=== PATIENT | male | born 2000 | race Caucasian/White ===

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

== ENCOUNTER 2021-01-23 02:44 | Outpatient (CLI) | payer OTHER, SELFPAY ==
[2021-01-23 09:04] LABS: Kit/Specimen SENT
[2021-01-24 08:28] LABS: IgE 575 IU/mL (<158)
[2021-01-24 09:10] LABS: IgA 298 mg/dL (85-499); IgG 1211 mg/dL (610-1,616); IgM 181 mg/dL (35-242)
[2021-01-28 12:10] LABS: 25-Hydroxy D Total 55 ng/mL; 25-Hydroxy D2 <4.0 ng/mL; 25-Hydroxy D3 55 ng/mL
== END 2021-01-23 02:45 | disposition home or self-care (01) ==
PROVIDERS: PCP Family Medicine; Visit Provider Naturopath
DX: E55.9 Vitamin D deficiency, unspecified (principal); Z91.018 Allergy to other foods
CPT/HCPCS: 36415; 82306; 82784; 82785

== ENCOUNTER 2021-01-29 09:50 | Outpatient (CLI) | payer OTHER, SELFPAY ==
--- OUTSIDE RECORDS SUMMARY | 2021-01-29 09:52 | XMS_ITS ---
:2001 External Reference #:[id number] Author Care Team Providers Name Role Phone Andie Primary Care Provider Unavailable Allergies Code Code System Name Reaction Severity Status Onset 812170 RxNorm [place] ? ? Active 03/04/2009 Birch ? ? Active 03/04/2009 433107 RxNorm Cinnamon ? ? Active 03/04/2009 Grass Pollen Itching Moderate Active 009 [place] ? ? Active 03/04/2009 Medications Name Status Start Date Stop Date ? ? betamethasone, augmented 0.05 % topical Active ? Not available ointment clindamycin 1 % lotion Active ? Not avail able Clindamycin Phosphate(Topical) Active ? N ot available Problems Name Status Onset Date Source ? Vitamin D Deficiency Active 12/05/2020 ? Anxiety Active 12/05/2020 ? Hidradenitis Suppurativa Active 12/05/2020 ? Tachycardia Active 12/05/2020 ? Dietary Management Surveillance Active 12/05/2020 ? Euthyroid with Thyroid Antibodies Active 12/26/2020 ? Procedures Date Name Performed by ? 10/20/2019 Other Information not avai lable Notes: cyst removal under right jawli ne 01/13/2021 Electrocardiogram [facility] [address] [place] [address] (Work Place) Results Lab Results None recorded. Past Encounters 01/08/2021 Tachycardia; Hidradenitis Suppurativa; D ietary Management Surveillance Nereyda Chaves, ND: [address] [place] [address], Ph. [phone] 12/25/2020 Hidradenitis Suppurativa; Euthyroid with Thyroid Antibodies; Allergy to Food; Vitamin D Deficiency; Dietary Management Surveillance Nereyda Chaves, ND: [address] [place] [address], Ph. [phone] 12/04/2020 Vitamin D Deficiency; Anxiety; Tachycard ia; Hidradenitis Suppurativa; Dietary Management Surveillance Nereyda Chaves, ND: [address] , [place] [address], Ph. [phone] Social History Tobacco Smoking Status Never Smoker Vaccine List Vaccine Type HPV, unspecified formulation 11/08/2014 influenza, seasonal, injectable 09/27/2020 Plan of Care Patient Instructions 1. Continue to add a food every few days- if loose stools occur up to 3 days after food introduce disocntinue 1. d-mulsion 5 drops/day retest in 2 months A-mulsion - 1 drop/day - as prevention- 5 drops/day if see more lesions or immune system is down- for 7-10 days no longer- zinc picolinate plus 1/day- - Magnesium citrate 2 caps at night Complete multi 2 cap 2xday Buffered c caps 1 cap 2xday active b12/folate 2 tabs/ [employer] igg and iga, maybe ige panels- i added another lab through your insurance for totals fo these Immunoglubins- and Gi 360- can wait stools are improvin g- on sporebiotics start slowly on above supplement plan- i ntroduce one pill every 3-4 days- call if questions 1. DIET/STOOL/symptom log bring to next visit- i will email additional copies to print- please use these to record for me - 2. food sensitivity testing-iga igg, ige panels by [employer]- we are waiting to see what [facility] orders for allergies/sensitivy testing 3. MRT-LEap- additional-histamine relate d food sensitivty-if necessary 4. MTHFR test through [facility]- [facility]orden snt offer anymore 5. MEgaspore biotic follow instructions on bottle 6. Purepea Vanilla protein- there is org anic (doesnt mix as well) and non- organic let me know which DIM- evail- if hormone imblance- sent yo u home with Chinese Hormone profile to help us determineto order for you if you would like to replace product you are currently taking A-D-K to be determined after bloodwork buffered Vit C caps- 1 cap 3xday maybe m ore bloodwork dependant B12/Folate and B-complex to be determine d D-mulsion after you get bloodwork begin taking 5 drops/day- until results are in- Tea tree topically- apply to armpit foreign y after showers- let me know if you want from our medicinary- DO NOT TAKE SUPPLEMENTS 3 DAYS BEFORE BL OODWORK except for megasporebiotic and purepea protein- nothing that has added nutrients/vitamins etc Reminders Provider Appointments None recorded. ? ? Lab None recorded. ? ? Referral None recorded. ? ? Procedures None recorded. ? ? Surgeries None recorded. ? ? Imaging None recorded. ? ? Vitals 12/25/2020 03:30PM ESTABLISHED PATIENT 46 Height Weight BMI 5 ft 9 in 134 lbs 19.8 kg/m2 12/04/2020 02:30PM NEW PATIENT 89 Height Weight BMI 5 ft 9 in 130 lbs 19.2 kg/m2
--- OUTSIDE RECORDS SUMMARY | 2021-01-29 09:52 | XMS_ITS | Encounter Summary ---
:2001 External Reference #:[id number] Author Reason for Visit None recorded. Assessment and Plan Assessment Note I spent a total of 120 minutes face to face time with this patient and 110 minutes was spent in counseling and coor dination of care/educations with that patient and mother as described in the progress note and /or: recommended diagnostic studies diagnostic results and impressions instr uctions for treatment and follow-up 1. Hidradenitis suppurativa 2. Euthyroid with thyroid antibo dies 3. Allergy to food ? immunoglobulins IgA, IgE, IgG, IgM, quantitative, serum 4. Vitamin D deficiency ? vitamin D3, 25-hydroxy, se rum 5. Dietary management surveillan ce Discussion Note: None recorded.Patient educational handouts: No information available. Plan of Care Patient Instructions 1. d-mulsion 5 drops/day retest in 2 [...] pill every 3-4 days- call if questions Reminders Provider Appointments Established Carole mossnu Chaves, Patient 46 02/04/2021 [place] 10:30AM Lab Immunoglobulins N ortheastern IgA, IgE, IgG, IgM, 12/25/2020 [facility] on[facility] Quantitative, Serum Hospital Lab ? Vitamin D3, [facility] 25-Hydroxy, Serum 12/25/2020 [facility] Lab Referral None recorded. ? ? Procedures None recorded. ? ? Surgeries None recorded. ? ? Imaging None recorded. ? ? Medications Name Start Date ? ? betamethasone, augmented 0.05 % topical ointment ? clindamycin 1 % lotion ? Clindamycin Phosphate(Topical) ? Medications Administered None recorded. Vitals Height Weight BMI 5 ft 9 in 134 lbs 19.8 kg/m2 Results Lab Results None recorded. Allergies Code Code System Name Reaction Severity Onset 262895 RxNorm [place] ? ? 03/04/2009 Birch ? ? 03/04/2009 180253 RxNorm Cinnamon ? ? 03/04/2009 Grass Pollen Itching Moderate 03/04/2009 [place] ? ? 03/04/2009 Problems Name Status Onset Date Source ? Vitamin D Deficiency Active 12/05/2020 ? Anxiety Active 12/05/2020 ? Hidradenitis Suppurativa Active 12/05/2020 ? Tachycardia Active 12/05/2020 ? Dietary Management Surveillance Active 12/05/2020 ? Euthyroid with Thyroid Antibodies Active 12/26/2020 ? Procedures Date Name Performed by ? 10/20/2019 Other Information not avai lable Notes: cyst removal under right jawli ne Vaccine List Vaccine Type HPV, unspecified formulation 11/08/2014 influenza, seasonal, injectable 09/27/2020 Social History Tobacco Smoking Status Never Smoker Tobacco-years of use 0 Family History Relation Problem Onset Age of Age Notes Paternal Grandfather Heart disease 65 N/A (No No [place]) Paternal Grandfather Diabetes mellitus 65 N/A (N o Notes) Maternal Grandmother Osteoporosis 65 N/A (No Not es) Maternal Grandmother Disorder of thyroid 65 N/A (No Notes) gland Maternal Grandmother Arthritis 65 N/A (No Not es) Mother Anxiety disorder 15 N/A (No Notes) Father Sleep disorder 20 N/A (No Notes) Functional Status Unknown. Past Encounters 12/25/2020 Hidradenitis Suppurativa; Euthyroid with Thyroid Antibodies; Allergy to Food; Vitamin D Deficiency; Dietary Management Surveillance Nereyda Chaves, ND: [address] [place] [address], Ph. [phone] 12/04/2020 Vitamin D Deficiency; Anxiety; Tachycard ia; Hidradenitis Suppurativa; Dietary Management Surveillance Nereyda Chaves [place]: [address] [place] [address], Ph. [phone] History of Present Illness Note: last sore open and drained<div>his stool went from type 5 </div><div>
</div><div>weight end of summer was 138</div><div>now today 134 gained 4 pounds in 3 weeks- </div><div>
</div><div>energy not changed not a bigchange- </div><div>
</div><div>reviewed labs for 30 minutes</div><div>Education about inflammation and diet for 10 minutes</div><div>diet and stool log with sxs for 40 minutes</div><div>instructions for fu 30 minutes</div><di v>
</div> Review of Systems None recorded. Physical Exam ? 14-21 Yr WC Reported By: Patient Signal Wirer: Signal Wirer: present General Appearance: General: well-developed, wel l-nourished, no acute distress Eyes: External Eye: no discharge. Conjunctiva: non-injected, non-icteric. Pupils: equal s ize, round, reactive to light. Red Reflex: present. Extraocular Movements: extraocular movements intact, normal cover/uncover test Ears, Nose, Throat: Ears: ; back of throat injec molly and cobblestone appearance. Tonsils: not enlarged, no er ythema, no exudate Neck: Thyroid: not enlarged, non-t willem, no palpable nodules, no asymmetry Cardiovascular: Apical impulse: not displace d. Rate and rhythm: regular; no tach today. Heart Sounds: normal S1, normal S2, no murmur, no gallops, no rub, normal femoral pulse , pedal pulses intact Lungs: Auscultation: clear to auscu ltation, no wheezing, no rales/crackles, no rhonchi, no tachypnea, no retractions. Percussion: normal, no dulln ess, no hyperresonance, no tympany Abdomen: Bowel Sounds: increased. Pal pation: non-distended, no guarding, no tenderness. Liver: non-te nder, no hepatomegaly. Spleen: non-tender, no splenomegaly
--- OUTSIDE RECORDS SUMMARY | 2021-01-29 09:52 | XMS_ITS | Encounter Summary ---
:2001 External Reference #:[id number] Author Reason for Visit None recorded. Assessment and Plan Assessment Note I spent a total of 60 minutes face to face time with this patient and 35 minutes of that time was spent in counseling and coordination of care with that patient as described in the progress note and /or: recommended diagnostic studies pt and family education Risk factor reduction instruct ions for treatment and follow-up 1. Vitamin D deficiency ? vitamin D3, 25-hydroxy, se rum ? vitamin A (retinol), serum ? vitamin K, serum or plasma 2. Anxiety ? homocysteine, serum or savage sma ? vitamin B12 + folate, seru m or blood 3. Tachycardia ? thyrotropin receptor AB, Q N, IA, serum ? TSH + free T4, serum ? T3, free, serum or plasma ? thyroid peroxidase (tpo) A b, serum ? thyroglobulin Ab, serum ? magnesium, serum or plasma 4. Hidradenitis suppurativa ? zinc, serum or plasma ? vitamin C, serum 5. Dietary management surveillan ce Discussion Note: None recorded.Patient educational handouts: No information available. Plan of Care Patient Instructions 1. DIET/STOOL/symptom log bring to next visit- i will email additional copies to print- please use these to record for me - 2. food sensitivity testing-iga igg, ige panels by [employer]- we are waiting to see what [facility] orders for allergies/sensitivy testing 3. MRT-LEap- additional-histamine relate d food sensitivty-if necessary 4. MTHFR test through [employer]- [facility] snt offer anymore 5. MEgaspore biotic follow instructions on bottle 6. Purepea Vanilla protein- there is org anic (doesnt mix as well) and non- organic let me know which DIM- evail- if hormone imblance- sent yo u home with Malaysian Hormone profile to help us determineto order [...] has added nutrients/vitamins etc Reminders Provider Appointments Established Carole Chaves, Patient 46 02/04/2021 [place] 10:30AM Lab Vitamin D3, [facility] 25-Hydroxy, Serum 12/04/2020 [facility] Lab ? Vitamin a [facility] (Retinol), Serum 12/04/2020 [facility] Lab ? Thyrotropin [facility] Receptor AB, QN, IA, 12/04/2020 [facility] Lab ? TSH + Free T4, No rtheastern Serum 12/04/2020 [facility] Lab ? T3, Free, Serum N ortheastern or Plasma 12/04/2020 [facility] Lab ? Homocysteine, [place] Serum or Plasma 12/05/2020 [facility] Lab ? Zinc, Serum or No rtheastern Plasma 12/05/2020 [facility] Lab ? Thyroid [place] Peroxidase (Tpo) Ab, 12/05/2020 [facility] Lab ? Thyroglobulin [place] the[place] Ab, Serum 12/05/2020 [facility] Lab ? Vitamin B12 + [place] the[place] Folate, Serum or Blood 12/05/2020 [facility] Lab ? Vitamin K, Northe astern Serum or Plasma 12/05/2020 [facility] Lab ? Vitamin C, Nort[place] ast[place] Serum 12/05/2020 [facility] Lab ? Magnesium, Northe astern Serum or Plasma 12/05/2020 [facility] Lab Referral None recorded. ? ? Procedures None recorded. ? ? Surgeries None recorded. ? ? Imaging None recorded. ? ? Medications Name Start Date ? ? betamethasone, augmented 0.05 % topical ointment ? clindamycin 1 % lotion ? Clindamycin Phosphate(Topical) ? Medications Administered None recorded. Vitals Height Weight BMI 5 ft 9 in 130 lbs 19.2 kg/m2 Results Lab Results None recorded. Allergies Code Code System Name Reaction Severity Onset 929830 RxNorm [place] ? ? 03/04/2009 Birch ? ? 03/04/2009 995451 RxNorm Cinnamon ? ? 03/04/2009 Grass Pollen Itching Moderate 03/04/2009 [place] ? ? 03/04/2009 Problems Name Status Onset [...] (No Notes) Functional Status Unknown. Past Encounters 12/04/2020 Vitamin D Deficiency; Anxiety; Tachycard ia; Hidradenitis Suppurativa; Dietary Management Surveillance Nereyda Chaves, ND: [address] [place] [address], Ph. [phone] History of Present Illness Note: hs<div>[age] yrs old- </div><div>
</div><div>under arms-sometimes feels in groin area- </div><div>his diet was fairly healthy</div><div>dairy- gluten, apples, birch, celery, carrots, beans, night shades, </div><div>basamati rice and black rice- </div><div>avoiding oats, </div><div>
</di v><div>DIET current:</div><div>2 eggs, slice milan, spinach oinion and garlic</div><div>smoothie every am</div><div>straw angela, bana, pineapple, oatmilk, allison, spinach avacad0 </div><div>casshews</div><div>avacado oil a nd olove oilsand pepper garlic, clean chicken citizen of [place] and [place] seasoning</div><div>tiger nut powder</div><div>lots of meat some red- </div><div>hamburger 1xweek greass fed- </div><div>steak once a week- </div><div>lots of veggies- 2 different brussel cauli brocc kale- spinach</div><div>mixed greens</div><div>lots onions and garlic, sweet pot in moderation- </div><div>zuckini- asparagus, </div><div>they rotate fromcertain food groups- </div><div>
</div><div>green bowels- and can be 5/6 type</div><div>3/4 alot of garlic will and passes garlic smell- </div><div>
</div><div>doesnt and didnt drink soada- </div><div>mom cooks alot- </div><div>
</div><div>cystic acne and was on acutane- </div><div>dry skina nd joint pain since stopped went away and he took for a year- </div><div>he was seen at [facility]- </div><div>no late or early puberty- </div><div> </div><div>has npot taken internal antibiotics ever- </div><div>recently offered them to him- </div><div>
</div><div>Supplements- </div><div>tumeric- was taking- </div><div>mom thought his dad was allergic to tumeric</div><div>magnesium, calcium and zinc and probiotic- my biome</div><div><br&g t;</div><div>things that have made better:</div><div>last fall it was its wor se</div><div>he steadily cut things out- now its been a couple of weeks since a flare- </div><div>used to be 1xweek</div><div>
</div><div>HIPA cleanse in shower- </div><div>clindamycin- in shower- </div><div>
</div><div>scar just opened up withut a flare- </div><div>not all open up and pus and blood come out- </div><div>
</div><div>no smell- </div><div>skin test revealed- </div><div>oak, maple, birch, alli, 4, grass</div><d iv>
</div><div>mold- </div><div>white water lines in basement- </div><div>
</div><div>he doesnt have sxs of seasonal allergies</di v><div>
</div><div>protein powder- </div><div>was taking avegan one with banana, cocnut </div><div>wants weght gain</div><div><br&gt ;</div><div>some joint pain and stiffness cold weather </div><div>
</div><div>when he took job flares were starting to happening</div><div>[id number] wakes at 4am- </div><div> graduated last spring- [employer]- </div><div>
</div><div>products and meditation</div><div>20 minutes aday</div><div>guided meditations</div><div>anxiety</div><div>allthrough hifghschool</div><div>
</div><div>allison lemon water and oat milk- </div><div>
</div><div>
</div> Review of Systems None recorded. Physical Exam ? 14-21 Yr WC Reported By: Patient Rn Placement: Rn Placement: present General Appearance: General: well-developed, wel l-nourished, no acute distress Eyes: External Eye: no discharge. Conjunctiva: non-injected, non-icteric. Pupils: equal s ize, round, reactive to light. Red Reflex: present. Extraocular Movements: extraocular movements intact, normal cover/uncover test Ears, Nose, Throat: Ears: ; back of throat injec molly and cobblestone appearance. Tonsils: not enlarged, no er ythema, no exudate Lymph Nodes: Lymph Nodes: no cervical lym phadenopathy, no inguinal lymphadenopathy; Hidradeniti s suppurativa in bilateral armpits- active on left armpit- with open sore right armpit scarring only Neck: Thyroid: not enlarged, non-t willem, no palpable nodules, no asymmetry Cardiovascular: Apical impulse: not displace d. Rate and rhythm: ; TACHYCARDIA. Heart Sounds: normal S1, nor mal S2, no murmur, no gallops, no rub, normal femoral pulse, p edal pulses intact Lungs: Auscultation: clear to auscu ltation, no wheezing, no rales/crackles, no rhonchi, no tachypnea, no retractions. Percussion: normal, no dulln ess, no hyperresonance, no tympany Abdomen: Bowel Sounds: increased. Pal pation: non-distended, no guarding, no tenderness. Liver: non-te nder, no hepatomegaly. Spleen: non-tender, no splenomegaly Musculoskeletal: General Musculoskeletal: lucio ssly normal movement of all extremities. Cervical Spine: full range of motion, no pain elicited by motion. Thoracol umbar spine: no scoliosis Skin: Color and Pigmentation: no c yanosis, no rash, no lesions, no acne, no pustules Neurological System: Mental Status: normal affect , normal mood. Motor: normal strength, normal tone
--- OUTSIDE RECORDS SUMMARY | 2021-01-29 09:52 | XMS_ITS | Encounter Summary ---
:2001 External Reference #:[id number] Author Reason for Visit None recorded. Assessment and Plan Assessment Note i spent 45 minutes with patient and his father- we have rules out hormonal influence like xs androgens, continue to work with diet he will get food senstivity testing next per request from his [facility] er to keep testing- decided on [employer] i gg, ig4, iga, and ige i spent 40 minutes answering questions b y patient and father aND REVIEWING DIET, RESULTS FROM HORMONE TESTING and suggested food sens testing. 10 minutes were spent in physical exam- checked for pulse a nd still high 90-104- had pt ly down sup ine and droped to 77 - johanny to 104- fam hx of this with mom, and maternal grandmother- also spoke with [facility] about what teting migh be appropriate- ekg or echo- will order when i get answers 1. Tachycardia ? electrocardiogram - please have patient be in supine potition lying down and sitting up- and make notes to r eport- in addition to regular ecg test- thank you call if questions- [phone] 2. Hidradenitis suppurativa 3. Dietary management surveillan ce Discussion Note: None recorded.Patient educational handouts: No information available. Plan of Care Patient Instructions 1. Continue to add a food every few days- if loose stools occur up to 3 days after food introduce disocntinue Reminders Provider Appointments Established Patient Nereyda Artis 02/04/2021 LUIS ANTONIO Chaves 10:30AM Lab None recorded. ? ? Referral None recorded. ? ? Procedures None recorded. ? ? Surgeries None recorded. ? ? Imaging Electrocardiogram [facility] 01/13/2021 Clinic Medications Name Start Date ? ? betamethasone, augmented 0.05 % topical ointment ? clindamycin 1 % lotion ? Clindamycin Phosphate(Topical) ? Medications Administered None recorded. Vitals None recorded. Results Lab Results None recorded. Allergies Code Code System Name Reaction Severity Onset 128029 RxNorm [place] ? ? 03/04/2009 Birch ? ? 03/04/2009 184724 RxNorm Cinnamon ? ? 03/04/2009 Grass Pollen Itching Moderate 03/04/2009 [place] ? ? 03/04/2009 Problems Name Status Onset [...] (No Notes) Functional Status Unknown. Past Encounters 01/08/2021 Tachycardia; Hidradenitis Suppurativa; D ietary Management Surveillance Nereyda Chaves, ND: [address] [place] [address], Ph. [phone] 12/25/2020 Hidradenitis Suppurativa; Euthyroid with Thyroid Antibodies; Allergy to Food; Vitamin D Deficiency; Dietary Management Surveillance Nereyda Chaves, ND: [address] [place] [address], Ph. [phone] History of Present Illness Note: he has one more week left- <div>of work</div><div>
</div><div>his father is here today</div><div>reviewed hormonal imbalamces- no xs testosteronenor estrogen, but elevated</div><div> progesterones- i explained my research found no correlation with progest and hs</div><div>
</div><div>cortisol is verylow overall- androgen production is more favorable but its not dominant- </div><div>so we returned to diet diary and reduction of inflammation</div><div>
</div><div>also noted soime imbalances in cortisol and low dhea and emphzed need to correct methylationactivity</div><div>
</div><div>we rechecked his rapid heart rate- his gfather comments that mopm abnd maternal granmother also have erratic heart beat-</div><di v>
</div><div>his diet has more variety</div><div>he has incorporated a few more foods and some strch- no outbreaks of HS</div><div>
</div> <div>he is taking supplemtns</div><div>stools have changed form 5/6 bristol to mostly 3</div><div>freq 2-4 a day but he has a high consumptopn of veggies and grains</div> Review of Systems None recorded. Physical Exam ? 14-21 Yr WC Reported By: Patient General Appearance: General: well-developed, wel l-nourished, no acute distress Cardiovascular: Apical impulse: not displace d. Rate and rhythm: irregularly irregular. Heart Sounds: irr egular heart rhythm Notes: postitional change in pulse from high 70' to 106 on sitting<div>
</div><div&g t;increased bowel sounds</div>
--- NOTE | 2021-01-29 11:00 | RT.EKG_ITS ---
APPROVED REPORT Exam: Resting ECG Patient Location: O HR:90 bpm ECG Measurements Heart Rate 90 AXIS IA 138 P 85 QRSd 57 QRS 75 QT 352 T 27 QTc 432 Conclusion Sinus rhythm...normal P axis, V-rate 60- 99
--- NOTE | 2021-01-29 11:15 | RT.EKG_ITS ---
APPROVED REPORT Exam: Resting ECG Patient Location: O HR:84 bpm ECG Measurements Heart Rate 84 AXIS WV 133 P 82 QRSd 59 QRS 72 QT 352 T 37 QTc 416 Conclusion Sinus rhythm...normal P axis, V-rate 60- 99
== END 2021-01-29 09:51 | disposition home or self-care (01) ==
LOC: RT 09:50
PROVIDERS: PCP Family Medicine; Visit Provider Naturopath
DX: R00.0 Tachycardia, unspecified (principal); C84.A0 Cutaneous T-cell lymphoma, unspecified, unspecified site
CPT/HCPCS: 93005; 93010

== ENCOUNTER 2021-02-05 03:40 | Outpatient (CLI) | payer OTHER, SELFPAY ==
[2021-02-05 09:55] LABS: Kit/Specimen SENT
== END 2021-02-05 03:41 | disposition home or self-care (01) ==
LOC: LBO 03:40
PROVIDERS: PCP Family Medicine; Visit Provider Naturopath
DX: Z91.018 Allergy to other foods (principal); E55.9 Vitamin D deficiency, unspecified
CPT/HCPCS: 36415